=== PATIENT | male | born 1970 | race Caucasian/White ===

== ENCOUNTER → 2016-10-15 | Outpatient (CLI) | payer BC, OTHER | END | disposition home or self-care (01) | LOC: Rad HDHVI 13:13 | PROVIDERS: ATTEND Internal Medicine Cardiovascular Disease | DX: I10 Essential (primary) hypertension (principal); R00.2 Palpitations | CPT/HCPCS: 93306 ==

== ENCOUNTER → 2016-11-18 | Outpatient (CLI) | payer BC ==
[~2016-11-18] VITALS: Ht 172.7 cm; Wt 83.9 kg
== END | disposition home or self-care (01) ==
LOC: Rad HDHVI 13:24
PROVIDERS: ATTEND Internal Medicine Cardiovascular Disease
DX: I10 Essential (primary) hypertension (principal); F41.9 Anxiety disorder, unspecified; R42 Dizziness and giddiness
CPT/HCPCS: 78452; 93017; 96374; A9500